=== PATIENT | male | born 1960 | race Caucasian/White ===

== ENCOUNTER 2017-03-24 08:22 | Emergency (ER) | payer OTHER ==
[~2017-03-24] VITALS: Ht 182.9 cm; Wt 78.9 kg
[~2017-03-24 08:22] MED LIST: OXYC-302 PO
[2017-03-24 08:30] VITALS: BP 145/78
[2017-03-24] MEDS ORDERED: LORazepam 1MG TABLET PO ONE (09:00)
[2017-03-24] MEDS ORDERED: LORazepam 1MG TABLET ONE (09:13)
[2017-03-24] MEDS ORDERED: HYDR-882 PO (09:32)
== END 2017-03-24 10:03 | disposition home or self-care (01) ==
LOC: ED 09:10
DX: Z76.0 Encounter for issue of repeat prescription (principal); G89.29 Other chronic pain; M54.5 Low back pain; F17.210 Nicotine dependence, cigarettes, uncomplicated
CPT/HCPCS: 99282

== ENCOUNTER 2017-07-19 03:21 | Emergency (ER) | payer OTHER ==
[~2017-07-19] VITALS: Ht 182.9 cm; Wt 80.0 kg
[~2017-07-19 03:21] MED LIST changes: +HYDR-882 PO
[2017-07-19] MEDS ORDERED: ZIPRASIDONE 20 MG INJ IM ONE ×2 (03:46→04:00)
[2017-07-19 04:39] LABS: BASOPHILS # (AUTO) 0.02 x10^3/uL (0-0.1); BASOPHILS % (AUTO) 0 % (0-1); EOSINOPHILS # (AUTO) 0.02 x10^3/uL (0-0.4); EOSINOPHILS % (AUTO) 0 % (1-7); LYMPHOCYTES # (AUTO) 0.78 x10^3/uL (1-3.4); LYMPHOCYTES % (AUTO) 6 % (22-44); MD NO; MEAN CORPUSCULAR HEMOGLOBIN 28.7 pg (27.5-34.5); MEAN CORPUSCULAR HGB CONC 33.1 g/dL (33.2-36.2); MEAN CORPUSCULAR VOLUME 86.8 fL (81-97); MEAN PLATELET VOLUME 8.5 fL (7.4-10.4); MONOCYTES # (AUTO) 0.53 x10^3/uL (0.2-0.8); MONOCYTES % (AUTO) 4 % (2-9); NEUTROPHILS # (AUTO) 11.49 x10^3/uL (1.8-6.8); NEUTROPHILS % (AUTO) 90 % (42-75); PLATELET COUNT 293 x10^3/uL (130-400); RED BLOOD COUNT 5.08 x10^6/uL (4.38-5.82); RED CELL DISTRIBUTION WIDTH 13.3 % (9.4-14.8)
[2017-07-19 04:40] LABS: INTERNATIONAL NORMALIZED RATIO 1.05 (0.93-1.1); PROTHROMBIN TIME 10.9 Seconds (9.6-11.5)
[2017-07-19 04:45] LABS: ALANINE AMINOTRANSFERASE 21 U/L (12-78); ALBUMIN 4.1 g/dL (3.4-5.0); ANION GAP 12 mmol/L (5-15); CHLORIDE 106 mmol/L (98-107); CREATININE 0.95 mg/dL (0.7-1.3); SALICYLATE LEVEL 3.7 mg/dL (2.8-20.0)
[2017-07-19 04:47] LABS: ACETAMINOPHEN 5 mcg/mL (10-30); ALKALINE PHOSPHATASE 81 U/L (45-117); BILIRUBIN,TOTAL 0.7 mg/dL (0.2-1.0); TOTAL PROTEIN 7.7 g/dL (6.4-8.2)
[2017-07-19 04:48] LABS: TROPONIN I < 0.015 ng/mL (0.000-0.045)
[2017-07-19 05:22] LABS: MICROSCOPIC INDICATED
[2017-07-19 05:30] LABS: AMPHETAMINE SCREEN, URINE Negative (Negative); BARBITURATE SCREEN, URINE Negative (Negative); BENZODIAZEPINE SCREEN, URINE Positive (Negative); CANNABINOID SCREEN, URINE Positive (Negative); COCAINE SCREEN, URINE Negative (Negative); METHADONE SCREEN, URINE Positive (Negative); OPIATE SCREEN, URINE Positive (Negative)
[2017-07-19 05:41] LABS: CULTURE INDICATED? NO
[2017-07-19 08:20] VITALS: BP 137/65
== END 2017-07-19 08:33 | disposition home or self-care (01) ==
LOC: ED 03:34
DX: R11.2 Nausea with vomiting, unspecified (principal); T40.2X1A Poisoning by other opioids, accidental (unintentional), initial encounter; I25.2 Old myocardial infarction; G89.29 Other chronic pain; M54.9 Dorsalgia, unspecified; F15.129 Other stimulant abuse with intoxication, unspecified; Z79.899 Other long term (current) drug therapy
CPT/HCPCS: 36415; 80053; 80307; 80329; 81001; 84484; 85025; 85610; 93005; 96372; 99285; J3486; G0480

== ENCOUNTER 2020-11-27 23:14 | Emergency (ER) | payer OTHER ==
[~2020-11-27] VITALS: Ht 182.9 cm; Wt 75.0 kg
[~2020-11-27 23:14] MED LIST changes: +HYDR-3653 PO; -HYDR-882 PO; -OXYC-302 PO; +OXYC1TAB14 PO
[2020-11-27] MEDS ORDERED: PROMETHAZINE 25 MG/ML, 1ML ONE (23:52)
[2020-11-28 00:18] LABS: BASOPHILS % (AUTO) 0 % (0-1); EOSINOPHILS % (AUTO) 0 % (1-7); LYMPHOCYTES % (AUTO) 4 % (22-44); MEAN CORPUSCULAR HEMOGLOBIN 28.9 pg (27.5-34.5); MEAN CORPUSCULAR HGB CONC 33.3 g/dL (33.2-36.2); MEAN PLATELET VOLUME 9.3 fL (7.4-10.4); MONOCYTES % (AUTO) 3 % (2-9); NEUTROPHILS % (AUTO) 93 % (42-75); PLATELET COUNT 167 x10^3/uL (130-400); RED BLOOD COUNT 4.48 x10^6/uL (4.38-5.82); RED CELL DISTRIBUTION WIDTH 14.5 % (9.4-14.8)
[2020-11-28 00:25] LABS: ALANINE AMINOTRANSFERASE 29 U/L (12-78); ALBUMIN 3.6 g/dL (3.4-5.0); ANION GAP 8 mmol/L (5-15); CALCIUM 8.8 mg/dL (8.5-10.1); CHLORIDE 103 mmol/L (98-107); CREATININE 0.82 mg/dL (0.7-1.3)
[2020-11-28 00:28] LABS: ALKALINE PHOSPHATASE 81 U/L (45-117); BILIRUBIN,TOTAL 0.4 mg/dL (0.2-1.0); TOTAL PROTEIN 6.9 g/dL (6.4-8.2)
--- NOTE | 2020-11-28 00:29 | NUR ---
PT RESTING IN [facility]. AWAITING RECORDS FROM [facility]
--- NOTE | 2020-11-28 00:50 | NUR ---
REPORT GIVEN TO SEGUNDO IVEY
--- NOTE | 2020-11-28 00:54 | NUR ---
Report from Radha RAYMOND
[2020-11-28 01:26] VITALS: BP 132/65
[2020-11-28] MEDS ORDERED: LORazepam 1MG TABLET PO ONE (02:30)
[2020-11-28] MEDS ORDERED: LORazepam 1MG TABLET ONE (02:38)
[2020-11-28 02:50] LABS: MICROSCOPIC NOT IND
--- NOTE | 2020-11-28 02:53 | NUR ---
family in [facility] stating that patient is "freaking out in room", also that patient is c/o unable to urinate but a few drops and having dysuria. Md notified, UA ordered, ua sent to lab
[2020-11-28] MEDS ORDERED: PROMETHAZINE 25 MG/ML, 1ML ONE (03:10)
[2020-11-28] MEDS ORDERED: PROMETHAZINE 25 MG/ML, 1ML IM ONE ×2 (03:30)
== END 2020-11-28 03:21 | disposition home or self-care (01) ==
LOC: ED 11-28 01:13
DX: R10.84 Generalized abdominal pain (principal); K43.9 Ventral hernia without obstruction or gangrene; F41.1 Generalized anxiety disorder; R11.0 Nausea; G89.29 Other chronic pain; Z85.038 Personal history of other malignant neoplasm of large intestine
CPT/HCPCS: 36415; 80053; 81003; 83690; 85025; 96372; 99284; J2550